=== PATIENT | male | born 1995 | race Caucasian/White ===

== ENCOUNTER 2019-01-06 21:22 | Emergency (ER) | payer OTHER ==
[~2019-01-06] VITALS: Ht 175.3 cm; Wt 86.4 kg
[2019-01-06 21:22] VITALS: BP 136/87
--- NOTE | 2019-01-07 07:41 | REP ---
Clinical: Trauma. Injury. Technique: AP, lateral, bilateral oblique views of the right ankle. Findings: Lateral swelling consist with inversion injury. No acute fracture dislocation. Ankle mortise intact. Impression: Lateral swelling. No fracture. Electronically Signed by Shad Chappell MD 01/07/2019 07:32 A
--- NOTE | 2019-01-07 07:44 | REP ---
Clinical: Trauma. Technique: AP, lateral, bilateral oblique views right foot . Findings: The osseous structures and joint spaces are intact and normal. There is no evidence for acute fracture or dislocation. Surrounding soft tissues are unremarkable. No subcutaneous emphysema or radiodense foreign body. Impression: Normal right foot series . No acute fracture or dislocation. Electronically Signed by Shad Chappell MD 01/07/2019 07:35 A
--- NOTE | 2019-01-07 07:45 | REP ---
Clinical: Trauma. Injury. Technique: AP and lateral views of the right tibia / fibula. Findings: No acute fracture or dislocation. Skeletal structures and joint spaces are intact and normal. No subcutaneous emphysema or foreign body. Impression: No acute fracture or dislocation. Electronically Signed by Shad Chappell MD 01/07/2019 07:36 A
== END 2019-01-06 23:23 | disposition home or self-care (01) ==
LOC: M ED 21:22
DX: S90.01XA Contusion of right ankle, initial encounter (principal); Y92.9 Unspecified place or not applicable

== ENCOUNTER → 2020-06-14 | Outpatient (CLI) | payer SELFPAY | LOC: M LABSMTC 10:44 | PROVIDERS: ATTEND Pediatrics | DX: Z20.822 Contact with and (suspected) exposure to COVID-19 (principal) ==

== ENCOUNTER 2020-12-27 22:18 | Emergency (ER) | payer OTHER ==
[~2020-12-27] VITALS: Ht 175.3 cm; Wt 89.9 kg
[2020-12-27 22:18] VITALS: BP 145/87
[2020-12-27] MEDS ORDERED: ADDE20CA3 PO (22:22)
[2020-12-27] MEDS ORDERED: LEXA1TAB PO (22:22)
--- NOTE | 2020-12-27 23:43 | REPVR ---
PROCEDURE INFORMATION: Exam: XR Right Finger(s) Exam date and time: 12/27/2020 10:26 PM Age: 25 years old Clinical indication: Other: Smashed 2nd digit; Additional info: Smashed while working on car TECHNIQUE: Imaging protocol: XR Right fingers. Views: Minimum 2 views. COMPARISON: No relevant prior studies available. FINDINGS: Bones/joints: There is a mildly displaced fracture of the inferior tuft of the index finger distal phalanx. No other fracture or malalignment. Joint spaces are unremarkable. Soft tissues: Mild soft tissue swelling and punctate debris in the tip of the index finger. IMPRESSION: Mildly displaced fracture of the tuft of the index finger distal phalanx. Electronically signed by: Nick Monahan On 12/27/2020 23:43:10 PM
== END 2020-12-28 04:45 | disposition left against medical advice (07) ==
LOC: M ED 22:18
DX: Z53.29 Procedure and treatment not carried out because of patient's decision for other reasons (principal)